=== PATIENT | male | born 1955 | race Caucasian/White ===

== ENCOUNTER → 2018-05-01 | Outpatient (CLI) | payer OTHER ==
[2018-05-01 10:35] LABS: ABG Base Excess 5.4 mmol/L; ABG HCO3 30 mmol/L (21-25); ABG Oxygen Saturation 98.4 % (94-97); ABG PCO2 48 mmHg (35-45); ABG PH 7.41 (7.35-7.45); ABG PO2 95 mmHg (83-108); ABG TCO2 32 mmol/L (19-24)
== END | disposition home or self-care (01) ==
LOC: LABWHC1 09:40
PROVIDERS: ATTEND Internal Medicine Critical Care Medicine
DX: R09.02 Hypoxemia (principal)
CPT/HCPCS: 36600; 82805